=== PATIENT | male | born 1960 | race Caucasian/White ===

== ENCOUNTER → 2016-10-04 | Outpatient (CLI) | payer BC ==
[~2016-10-04] MED LIST: LEVA500T; OXYB5TAB4; SODIUM BICARBONATE
--- NOTE | 2016-10-04 14:12 | REP ---
THORACIC SPINE, THREE VIEWS: HISTORY: Back pain. There is a no acute fracture or subluxation. There is loss of height of several mid and lower thoracic intervertebral discs. Osteophytes are present throughout the thoracic spine. IMPRESSION: Degenerative change as described above. Signed by Jose Alejandro Berry MD 10/04/2016 02:23 P
--- NOTE | 2016-10-04 14:16 | REP ---
LUMBAR SPINE, FIVE VIEWS: HISTORY: Back pain. There is no acute fracture or subluxation. The L2-3 through L5-S1 intervertebral discs are decreased in height consistent with disc degeneration. Osteophytes are present throughout the lumbar spine. There is narrowing of the L4-5 and L5-S1 facet joints. There is partial sacralization of the L5 vertebral body. IMPRESSION: Degenerative change as described above. Signed by Jose Alejandro Berry MD 10/04/2016 02:23 P
== END ==
LOC: M WUC 11:44
PROVIDERS: ATTEND Physician Assistant
DX: M54.5 Low back pain (principal); M54.14 Radiculopathy, thoracic region; M51.36 Other intervertebral disc degeneration, lumbar region; M51.04 Intervertebral disc disorders with myelopathy, thoracic region

== ENCOUNTER 2016-11-16 19:04 | Emergency (ER) | payer BC ==
[~2016-11-16] VITALS: Ht 172.7 cm; Wt 75.7 kg
[2016-11-16] MEDS ORDERED: MORPHINE 4 MG/ML 1ML SYRINGE IV ONE (20:30)
[2016-11-16 21:04] LABS: BASO % 0.6 % (0.0-1.0); EOS # 0.3 K/mm3 (0.0-0.50); EOS % 3.7 % (0.0-3.0); LARGE UNSTAINED CELL # 0.1 K/mm3 (0.0-0.4); LARGE UNSTAINED CELL % 1.1 % (0.0-4.0); LYMPH # 0.7 K/mm3 (1.5-4.5); LYMPH % 7.9 % (24.0-44.0); MEAN CORPUSCULAR HEMOGLOBIN 32.1 pg (27.0-33.0); MEAN CORPUSCULAR HGB CONC 34.5 g/dl (32.0-36.5); MEAN CORPUSCULAR VOLUME 92.9 fl (80.0-96.0); MONO # 0.6 K/mm3 (0.0-0.8); MONO % 7.8 % (0.0-5.0); NEUTROPHILS # 6.5 K/mm3 (1.8-7.7); NEUTROPHILS % 78.9 % (36.0-66.0); PLATELET COUNT, AUTOMATED 158 k/mm3 (150-450); RED CELL DISTRIBUTION WIDTH 12.6 % (11.5-14.5); WHITE BLOOD COUNT 8.2 K/mm3 (4.0-10.0)
[2016-11-16 21:09] LABS: INR 1.17
[2016-11-16 21:23] LABS: ANION GAP 7 MEQ/L (8-16); BLOOD UREA NITROGEN 18 MG/DL (7-18); CARBON DIOXIDE LEVEL 29 MEQ/L (21-32); CHLORIDE LEVEL 103 MEQ/L (98-107); CREATININE FOR GFR 1.01 MG/DL (0.70-1.30); GLOMERULAR FILTRATION RATE > 60.0 (>56); GLUCOSE, FASTING 98 MG/DL (70-105); POTASSIUM SERUM 4.4 MEQ/L (3.5-5.1); SODIUM LEVEL 139 MEQ/L (136-145)
[2016-11-16] MEDS ORDERED: ISOVUE-370 76% 100ML VIAL (Q9967) As Ordered ONE (22:04)
[2016-11-16 22:27] VITALS: BP 115/72
--- NOTE | 2016-11-16 22:50 | REPUSA ---
CT angiogram of the chest Clinical statement: Chest pain and shortness of breath. Technique: Multiple axial CT images were obtained from the thoracic inlet through the upper abdomen a fter a bolus administration of nonionic intravenous contrast. Coronal and sagittal reconstructions we re also obtained. Comparison: None. Findings: The pulmonary arteries are well-opacified with contrast, with no intraluminal filling defec ts to suggest embolism. The thoracic aorta is unremarkable. Thyroid gland is within normal limits. Th ere is no thoracic lymphadenopathy. There are no pericardial or pleural effusions. There Is linear at electasis in the lower lungs bilaterally. Limited imaging of the upper abdomen demonstrates several l arge hypodense solid masses within the liver. The dominant mass, located in segment VII, measuring 7. 8 x 6.0 cm. A second lesion just anterior to this dominant lesion measures 3.4 x 3.7 cm. There is a d estructive lytic osseous lesion in the left lateral T5 vertebral body, measuring 2.3 x 2.6 cm. No di screte fracture or extraosseous component is noted. Impression: 1. No evidence of pulmonary embolism. 2. Linear atelectasis in the lower lungs bilaterally. 3. Large hypodense solid masses the liver, likely representing metastatic disease until proven otherw ise. 4. Lytic destructive lesion of T5, also likely representing metastatic disease.
[2016-11-16] MEDS ORDERED: HYDROmorphone HCL 1 MG/ML SYRINGE (J1170) IV ONE ×2 (23:00→23:15)
--- NOTE | 2016-11-16 23:00 | REPUSA ---
CT of the lumbar spine without contrast Clinical history: Pain. Technique: Multiple axial CT images were obtained through the lumbar spine without administration of contrast. Coronal and sagittal 3-D reconstructed images were also obtained. Findings: The lumbar vertebral bodies are in satisfactory positioning and alignment. No fractures or dislocatio ns are demonstrated. There is moderate degenerative disc disease at L4/L5. Intervertebral disc spaces areootherwise well-maintained. There is no evidence of facet subluxation. The neural foramen appear grossly patent. The spinal canal demonstrates normal caliber and contour without evidence of spinal s tenosis. The surrounding soft tissues are within normal limits. Impression: 1. No acute fracture or destructive osseous abnormality appreciated. 2. Moderate degenerative disc disease at L4/L5.
--- NOTE | 2016-11-16 23:00 | REPUSA ---
CT of the thoracic spine without contrast Clinical history: Pain. Technique: Multiple axial CT images were obtained through the thoracic spine without administration o f contrast. Coronal and sagittal 3-D reconstructed images were also obtained. Findings: The vertebral bodies are in satisfactory positioning and alignment. There is a link destructive lesio n in the left lateral T5 vertebral body. This was described on the earlier CT of the chest, measuring approximate 3.2 x 2.7 cm. However, there is also a lytic lesion in the T6 vertebral body, not descri bed or visualized on the prior exam. This lesion is his in the anterior vertebral body, measuring 1.4 x 1.5 cm. No extraosseous soft tissue tumors are noted. No acute fractures or dislocations are demon strated. Intervertebral disc spaces are well-maintained. There is no evidence of facet subluxation. T he neural foramen appear grossly patent. The spinal canal demonstrates normal caliber and contour wit hout evidence of spinal stenosis. The surrounding soft tissues are within normal limits. Impression: Lytic destructive lesions within the T5 and T6 vertebral bodies as described, likely repr esenting metastatic disease. No pathologic fractures are identified.
--- NOTE | 2016-11-17 14:13 | ED PDOC ---
Post-Departure Follow-Up certified letter sent to pt re formal read of ct t spine, cta, - needs fu. no pcp documented in this record. Melissa Luis MD November 17, 2016 14:13
== END 2016-11-16 23:24 | disposition home or self-care (01) ==
LOC: EDBD 19:04 → M ED 19:54
DX: C79.51 Secondary malignant neoplasm of bone (principal); M51.36 Other intervertebral disc degeneration, lumbar region; K76.89 Other specified diseases of liver; C02.9 Malignant neoplasm of tongue, unspecified; Z79.899 Other long term (current) drug therapy; Z88.0 Allergy status to penicillin
CPT/HCPCS: 36415; 71275; 72128; 72131; 80048; 82550; 85025; 85610; 85730; 96374; 96375; 99284; J1170; Q9967

== ENCOUNTER 2017-05-01 19:26 | Inpatient (IN) | payer OTHER, BC ==
[~2017-05-01] VITALS: Ht 172.7 cm; Wt 51.0 kg
[2017-05-01] MEDS ORDERED: MORP1SOL3 PO (19:41)
[2017-05-01] MEDS ORDERED: HYDR1LIQ (19:41)
[2017-05-01] MEDS ORDERED: HYOS1TAB PO (19:43)
[2017-05-01] MEDS ORDERED: LORA0.5T11 PO (19:43)
[2017-05-01] MEDS ORDERED: PROC25SU PR (19:43)
[2017-05-01 19:45] VITALS: BP 108/65
[2017-05-01] MEDS ORDERED: HYOSCYAMINE SULFATE 0.125 MG SUBL TABLET PO PRN (20:30)
[2017-05-01] MEDS ORDERED: ONDANSETRON 4MG/2ML VIAL (J2405) IV PRN (20:30)
[2017-05-01] MEDS ORDERED: ACETAMINOPHEN 650 MG SUPP PR PRN (20:30)
[2017-05-01] MEDS ORDERED: MORP20SO3 PO (20:38)
--- NOTE | 2017-05-01 21:15 | HPEPDOC ---
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 Family and hospice felt that he was not as comfortable with his pain control at home and family requesting he be admitted for better pain control. I spoke to his hospice nurse as well and she informed me that they had also tried placement at the hospice house; but unfortunately there were no beds available this evening. His condition is known to him and the family to be terminal and they have informed me they do not expect him to make it through the night, but want to focus on making him comfortable. I don't have a recent H&P in the EMR and the majority of the information has been gathered from family members. PAST MEDICAL HISTORY: Esophageal and stomach cancer (stage 4) s/p chemo/radiation and surgery Bone metastasis with severe back pain PAST SURGICAL HISTORY: Esophageal SOCIAL HISTORY: Marital status: , quit smoking. No recent alcohol use or recent travel/ sick exposures FAMILY HISTORY: noncontribuatory ALLERGIES: Please see below. REVIEW OF SYSTEMS: limited do to patient lethargy HOME MEDICATIONS: Please see below. PHYSICAL EXAMINATION: VITAL SIGNS: see below GENERAL APPEARANCE: gaunt, general cachexia, lethargic. HEENT: mucosa dry membranes, neck veins are flat. CARDIOVASCULAR: RRR. LUNGS: Diminished bibasilar breath sounds. ABDOMEN: soft NT/ND. MUSCULOSKELETAL: negative. EXTREMITIES: negative. NEUROLOGICAL: lethargic, unable to evaluate. ASSESSMENT: 56-year-old gentleman with stage IV esophageal cancer, bony metastasis, on hospice at home and family felt that his pain level has been intractable today.. PLAN: 1. Patient will be admitted with BOWL TOPPER orders placed. Hospice is already involved with this patient. Family and the patient is aware that he is terminal and that he is unlikely to last more than 24-48 hours. Goals of therapy will be for comfort. I had the opportunity to briefly speak to the nursing housekeeping/laundry supervisor who is working to get him into a quiet room, so the family can spend what remaining time he has before he passes.. Vital Signs Vital Signs Date Time Temp Pulse Resp B/P (MAP) Pulse Ox O2 Delivery O2 Flow Rate FiO2 05/01/17 20:28 05/01/17 19:46 99 Non-Rebreather 15.0 05/01/17 19:45 97.9 138 24 Home Medications Scheduled PRN Hyoscyamine Sulfate (Hyoscyamine Sulfate Odt) 0.125 Mg Tab, 0.125 MG PO Q4H PRN for TERMINAL SECRETIONS Lorazepam (Lorazepam) 0.5 Mg Tab, 0.5 MG PO Q6H PRN for ANXIETY/AGITATION Morphine Sulfate (Morphine Sulfate) 100 Mg/5 Ml Apolonia, 0.25-1 ML PO Q2H PRN for PAIN OR DYSPNEA Prochlorperazine (Compro) 25 Mg Supp, 25 MG NV Q6H PRN for NAUSEA Allergies Coded Allergies: Penicillins (Verified Allergy, Unknown, 10/15/12) Penicillins Cross Reactors (Verified Allergy, Unknown, 10/15/12) MACO GOMEZ DO May 01, 2017 21:15
[2017-05-01] MEDS: MORPHINE 2 MG/ML 1ML SYRINGE IV PRN (21:37)
[2017-05-02] MEDS: MORPHINE 2 MG/ML 1ML SYRINGE IV PRN ×2 (02:22→08:30)
[2017-05-02] MEDS: LORazepam 2 MG/ML VIAL (J2060) IV PRN ×7 (06:06→22:48)
[2017-05-02] MEDS: MORPHINE SULF IN 0.9% NACL 100 MG in APPROPRIATE DILUENT 1 EA IV SCH ×2 (11:54)
--- NOTE | 2017-05-02 17:41 | IPN ---
DATE: 05/02/2017 The patient is seen and examined. Patient admitted yesterday from hospice, currently COMFORT MEASURES ONLY for pain control. Patient currently unresponsive, abdominal breathing. No further history possible on nonrebreather. Currently COMFORT MEASURES ONLY. PHYSICAL EXAMINATION: Cachectic, lethargic, grunt. HEENT: Dry mucous membranes. Neck veins flat. CARDIAC: Tachycardic, S1, S2. PULMONARY: Diminished breath sounds bilaterally. Abdominal breathing. ABDOMEN: Soft, nontender. EXTREMITIES: No edema of bilateral lower extremities. ASSESSMENT AND PLAN: This is a 56-year-old male patient with underlying medical history of stage IV esophageal stomach cancer with metastasis to the bone, had chemotherapy, radiation and surgery, was brought to the hospital because the patient has been in significant pain out of control at home, was on hospice. The patient is COMFORT MEASURES ONLY. Family was concerned that overnight the patient's pain medication was not given his every two hour doses administered on time resulting in significant discomfort from the patient. We will place the patient on morphine drip and Tylenol suppository, leptin for terminal secretion, Ativan 1 mg IV every two hours as needed, Zofran. We will monitor the patient. Currently, the patient is COMFORT MEASURES ONLY.
[2017-05-03] MEDS: LORazepam 2 MG/ML VIAL (J2060) IV PRN ×6 (01:28→22:42)
[2017-05-03] MEDS: MORPHINE SULF IN 0.9% NACL 100 MG in APPROPRIATE DILUENT 1 EA IV SCH ×2 (14:39)
--- NOTE | 2017-05-03 19:04 | IPN ---
DATE: 05/03/2017 Patient seen and examined. Currently comfort measure only. Nonverbal with unresponsive, abdominal breathing on the rebreather. Turning comfort measure only. PHYSICAL EXAM: GENERAL: Patient unresponsive. Dry mucous membranes, lethargic and cachectic. CARDIAC: Tachycardia, S1, S2. PULMONARY: Diminished breath sound. Abdominal breathing. ABDOMEN: Soft, nontender. EXTREMITIES: No edema bilateral lower extremities. ASSESSMENT AND PLAN: This is a 56-year-old male patient with underlying medical history of stage 4 esophageal stomach cancer with metastasis to the bone. Had chemo radiation and surgery. Was brought to the hospital because of patient's pain controlled at home. Currently was on hospice. Current comfort measure only. Patient also with severe protein calorie malnutrition with cachectic secondary to underlying cancer. Currently patient comfort measure only. Continue morphine drip, Tylenol suppository and terminal secretion. Ativan 1 mg intravenous every 2 hours as needed. Zofran. Will monitor patient for symptoms. Comfort measure only.
[2017-05-04] MEDS: LORazepam 2 MG/ML VIAL (J2060) IV PRN ×3 (01:44→16:12)
[2017-05-04] MEDS: MORPHINE SULF IN 0.9% NACL 100 MG in APPROPRIATE DILUENT 1 EA IV SCH ×2 (10:30)
--- NOTE | 2017-05-04 18:31 | IPNPDOC ---
Text Note Date of Service The patient was seen on 05/04/17. NOTE Patient seen and examined. Currently comfort measure only. Nonverbal with unresponsive, abdominal breathing on the rebreather. comfort measure only. PHYSICAL EXAM: GENERAL: Patient unresponsive. Dry mucous membranes, lethargic and cachectic. CARDIAC: Tachycardia, S1, S2. PULMONARY: Diminished breath sound. Abdominal breathing. tachypnea ABDOMEN: Soft, nontender. EXTREMITIES: No edema bilateral lower extremities. ASSESSMENT AND PLAN: This is a 56-year-old male patient with underlying medical history of stage 4 esophageal stomach cancer with metastasis to the bone. Had chemo radiation and surgery. Was brought to the hospital because of patient's pain controlled at home. Currently was on hospice. Current comfort measure only. Patient also with severe protein calorie malnutrition with cachectic secondary to underlying cancer. Currently patient comfort measure only. Continue morphine drip, Tylenol suppository and terminal secretion. Ativan 1 mg intravenous every 2 hours as needed. Zofran. Will monitor patient for symptoms. Comfort measure only. VS,Fishbone, I+O VS, Fishbone, I+O Vital Signs Date Time Temp Pulse Resp B/P (MAP) Pulse Ox O2 Delivery O2 Flow Rate FiO2 05/04/17 09:00 Non-Rebreather 15.0 05/02/17 08:40 14 05/01/17 20:28 05/01/17 19:46 99 05/01/17 19:45 97.9 138 I&O- Last 24 Hours up to 6 AM 05/05/17 06:00 Intake Total 0 ml Balance 0 ml ЕЛЕНА MONTIEL MD May 04, 2017 18:31
--- NOTE | 2017-05-07 19:32 | DSES ---
DATE OF ADMISSION: 05/02/2017 DATE OF : 05/04/2017 at 8:15 p.m. FINAL DIAGNOSES: 1. Stage IV esophageal cancer with metastasis to the bone. 2. Severe protein calorie malnutrition. HISTORY OF PRESENT ILLNESS: This is a 56-year-old male patient with underlying medical history of stage IV esophageal cancer with metastasis to bone. Was currently on hospice, was brought in here by family with intractable pain, severe distress, unable to be cared for at home, and shows severe protein calorie malnutrition. On presentation, patient has been lethargic with malaise, not really arousable, currently comfort measures only. Admitted to the hospital with having significant dyspnea. HOSPITAL COURSE: Patient admitted to the hospital under comfort measures only and hospice. Started on morphine drip, Ativan, and remained relatively comfortable during the hospital stay and patient eventually on 05/04/2017, at 8:15 p.m.
== END 2017-05-04 22:54 | disposition expired | DRG 947 ==
LOC: M ED 19:26 → M ED INP 20:17 → M MSPAV 21:16 → OBSVTOIN 05-02 15:33
PROVIDERS: ADMIT Hospitalist; ATTEND Hospitalist
DX: G89.3 Neoplasm related pain (acute) (chronic) (principal); E43 Unspecified severe protein-calorie malnutrition; C79.51 Secondary malignant neoplasm of bone; C15.9 Malignant neoplasm of esophagus, unspecified; C16.9 Malignant neoplasm of stomach, unspecified; R06.00 Dyspnea, unspecified; Z51.5 Encounter for palliative care; Z88.0 Allergy status to penicillin; Z79.899 Other long term (current) drug therapy; Z92.3 Personal history of irradiation; Z92.21 Personal history of antineoplastic chemotherapy